=== PATIENT | female | born 1995 | race Caucasian/White ===

== ENCOUNTER → 2017-03-09 16:59 | Outpatient (CLI) | payer MEDICAID ==
[~2017-03-09 16:59] MED LIST: PRENATAL COMPLE1 TAB PO
[2017-03-22 10:22] VITALS: BMI 27.9
== END | disposition home or self-care (01) ==
LOC: D.LDO 16:59
DX: O36.5930 Maternal care for other known or suspected poor fetal growth, third trimester, not applicable or unspecified (principal); Z3A.36 36 weeks gestation of pregnancy

== ENCOUNTER → 2017-03-14 11:07 | Outpatient (CLI) | payer MEDICAID ==
[2017-03-22 10:22] VITALS: BMI 27.9
== END | disposition home or self-care (01) ==
LOC: D.LDO 11:07
DX: O36.5930 Maternal care for other known or suspected poor fetal growth, third trimester, not applicable or unspecified (principal); Z3A.37 37 weeks gestation of pregnancy

== ENCOUNTER → 2017-03-17 13:47 | Outpatient (CLI) | payer MEDICAID ==
[2017-03-22 10:22] VITALS: BMI 27.9
== END | disposition home or self-care (01) ==
LOC: D.LDO 13:47
DX: O36.5930 Maternal care for other known or suspected poor fetal growth, third trimester, not applicable or unspecified (principal); Z3A.37 37 weeks gestation of pregnancy

== ENCOUNTER → 2017-03-21 10:29 | Outpatient (CLI) | payer MEDICAID ==
[2017-03-22 10:22] VITALS: BMI 27.9
== END | disposition home or self-care (01) ==
LOC: D.LDO 10:29
DX: O36.5930 Maternal care for other known or suspected poor fetal growth, third trimester, not applicable or unspecified (principal); Z3A.38 38 weeks gestation of pregnancy

== ENCOUNTER 2017-03-21 13:03 | Inpatient (IN) | payer MEDICAID ==
[~2017-03-21] VITALS: Ht 172.7 cm; Wt 83.5 kg
[2017-03-22 05:02] VITALS: BP 120/86; BMI 28.0
[2017-03-22] MEDS ORDERED: PRENATAL COMPLE1 TAB PO (05:08)
[2017-03-22 06:31] LABS: HEMATOCRIT 33.9 % (36.0-48.0); HEMOGLOBIN 10.9 g/dL (12-16); MCH 30.4 pg (26.0-34.0); MCHC 32.2 g/dL (31.0-37.0); MCV 94.7 fL (80.0-100.0); MEAN PLATELET VOLUME 12.1 fL (7.4-10.4); RBC 3.58 10x6/uL (4.00-5.40); RDW 16.1 % (11.5-14.5); WBC 12.9 10x3/uL (4.8-10.8)
[2017-03-22 10:22] VITALS: Ht 172.7 cm; Wt 83.5 kg
[2017-03-22 11:11] LABS: APPEARANCE CLEAR (CLEAR); COLOR YELLOW (YELLOW); GLUCOSE NEGATIVE (NEGATIVE); KETONE NEGATIVE (NEGATIVE); NITRITE NEGATIVE (NEGATIVE); PROTEIN TRACE mg/dL (NEGATIVE); UROBILINOGEN NORMAL (NORMAL)
[2017-03-22 11:12] LABS: BILIRUBIN NEGATIVE (NEGATIVE)
--- NOTE | 2017-03-23 05:10 | NUR ---
PATIENT TO ROOM 1275 FOR CARE.
--- NOTE | 2017-03-23 05:37 | NUR ---
PATIENT SHOWERED, GETTING DRESSED AT THIS TIME, DENIES NEEDS. WILL CONTINUE TO MONITOR
--- NOTE | 2017-03-23 06:07 | NUR ---
PATIENT LYING IN BED, RESPIRATIONS EVEN AND NON LABORED. DENIES PAIN OR NEEDS AT THIS TIME. PT STATES THAT SHE FEELS SO MUCH BETTER AFTER TAKING HER SHOWER. ENCOURAGED TO CALL WITH ANY NEEDS.
--- NOTE | 2017-03-23 06:36 | NUR ---
PATIENT WALKING OFF UNIT IN STABLE CONDITION WITH SIGNIFICANT OTHER AT THIS TIME
--- NOTE | 2017-03-23 06:59 | NUR ---
REPORT GIVEN TO AM SHIFT TO ASSUME PATIENT CARE.
[2017-03-23 07:15] VITALS: BP 114/77
--- NOTE | 2017-03-23 07:15 | NUR ---
PT AMBULATORY BACK TO ROOM. VSS. AAO X 3. HRRR WITHOUT AUDIBLE MURMUR. BBS CLEAR. BS X 4. ABDOMEN SOFT/NON-DISTENDED. FUNDUS FIRM AT U/2. RUBRA LOCHIA MOD AMT. PT DENIES HEAVY BLEEDING. NEG HOMANS' SIGN. PPP. NO EDEMA NOTED TO BLE. STATES PAIN OF "1" ON 0-10 PAIN SCALE. STATES BACK PAIN AND PERINEAL PAIN. DENIES NEED FOR PAIN MED. SR UP X2. CALL LIGHT IN REACH.
[2017-03-23 07:27] LABS: RAPID PLASMA REAGIN Non Reactive (Non Reactive)
--- NOTE | 2017-03-23 08:20 | NUR ---
PT SITTING UP IN BED. FEEDING INFANT. FUNDUS FIRM AT U/2. RUBRA LOCHIA SMALL AMT. PT DENIES PASSING CLOTS.
--- NOTE | 2017-03-23 09:48 | NUR ---
PT AMBULATORY IN HALLS. TOLERATES ACTIVITY WELL.
--- NOTE | 2017-03-23 09:54 | NUR ---
PT AMBULATORY BACK TO ROOM. STATES PASSED A SMALL DIME SIZED CLOT EARLIER. DENIES HEAVY BLEEDING.
--- NOTE | 2017-03-23 10:50 | NUR ---
PT SITTING UP IN BED FEEDING . PT OFFERED ENCOURAGEMENT AND QUESTIONS ANSWERED.
--- NOTE | 2017-03-23 11:47 | NUR ---
PT AMBULATORY WITH FAMILY IN HALLS.
--- NOTE | 2017-03-23 13:30 | NUR ---
PT AMBULATORY BACK TO ROOM. KARLEE ACTIVITY WELL. PT TO SHOWER AT THIS TIME. DENIES NEEDS OR C/O.
--- NOTE | 2017-03-23 14:35 | NUR ---
PT SITTING UP IN BED. STATES DECIDED TO WAIT ON SHOWER FOR NOW. VISITS WITH FAMILY. DENIES NEEDS OR C/O.
--- NOTE | 2017-03-23 15:37 | NUR ---
PT AMBULATORY WITH SO IN HALLS. DENIES C/O OR NEEDS.
--- NOTE | 2017-03-23 15:50 | NUR ---
PT AMBULATORY BACK TO ROOM.
--- NOTE | 2017-03-23 16:15 | NUR ---
PT AMBULATORY IN ROOM. PT TO BED. VS NOTED. FUNDUS FIRM AT U/2. RUBRA LOCHIA SMALL AMT. PT DENIES HEAVY BLEEDING OR PASSING CLOTS. PT DENIES PAIN OR NEEDS.
[2017-03-23 16:16] VITALS: BP 138/84
--- NOTE | 2017-03-23 17:34 | NUR ---
PT AMBULATORY WITH FAMILY OFF UNIT. DENIES C/O OR NEEDS.
--- NOTE | 2017-03-23 18:20 | NUR ---
PT AMBULATORY IN HALLS. REQUESTS NICOTINE PATCH.
--- NOTE | 2017-03-23 18:30 | NUR ---
PT RETURNS TO ROOM. STATES AMBULATED TO [place] WITH SO. DENIES PAIN OR NEEDS. AWAITING NICOTINE PATCH TO BE VERIFIED BY PHARMACY.
--- NOTE | 2017-03-23 19:00 | NUR ---
PATIENT REPORT RECEIVED FROM FARNAZ ALANIZ TO ASSUME PATIENT CARE.
[2017-03-23 19:10] VITALS: BP 131/80
--- NOTE | 2017-03-23 19:10 | NUR ---
IN TO ASSESS PATIENT AT THIS TIME. PATIENT RESTING QUIETLY IN BED WITH INFANT AND SIGNIFICANT OTHER. POSITIVE BONDING NOTED. BED LOCKED, IN LOW POSITION, CALL MENDOZA AND TRAY TABLE IN REACH.
--- NOTE | 2017-03-23 19:16 | NUR ---
MOTRIN 600MG PO AT THIS TIME PER MD ORDERS AND PT REQUEST. 14MG NICOTINE TRANSDERMAL PATCH PLACED TO RIGHT UPPER ARM PER MD ORDER AND PT REQUEST. EDUCATION PROVIDED. PT DENIES OTHER NEEDS AT THIS TIME. SIGNIFICANT OTHER REMAINS AT BEDSIDE FOR ASSISTANCE.
--- NOTE | 2017-03-23 20:40 | NUR ---
PATIENT SLEEPING, RESPIRATIONS EVEN AND NON LABORED. SIGNIFICANT OTHER REMAINS AT BEDSIDE FOR ASSISTANCE.
--- NOTE | 2017-03-23 21:50 | NUR ---
PATIENT SLEEPING, RESPIRATIONS EVEN AND NON LABORED. SIGNIFICANT OTHER REMAINS AT BEDSIDE.
--- NOTE | 2017-03-23 23:45 | NUR ---
PATIENT SITTING UP IN BED USING CELL PHONE AT THIS TIME, DENIES PAIN OR NEEDS AT THIS TIME.
--- NOTE | 2017-03-24 01:30 | NUR ---
PATIENT SLEEPING, RESPIRATIONS EVEN AND NON LABORED. SIGNIFICANT OTHER REMAINS AT BEDSIDE. BED LOCKED IN LOW POSITION, CALL MENDOZA AND TRAY TABLE IN REACH.
--- NOTE | 2017-03-24 03:35 | NUR ---
PATIENT SLEEPING IN BED ON HER RIGHT SIDE. RESPIRATIONS EVEN AND NON LABORED. SIGNIFICANT OTHER REMAINS AT BEDSIDE FOR ASSISTANCE. BED LOCKED, IN LOW POSITION. TRAY TABLE AND CALL MENDOZA IN REACH.
[2017-03-24 04:10] VITALS: BP 117/64
--- NOTE | 2017-03-24 05:30 | NUR ---
PATIENT RESTING QUIETLY WITH NO NEEDS IDENTIFIED.
--- NOTE | 2017-03-24 07:00 | NUR ---
PATIENT REPORT GIVEN TO AM SHIFT TO ASSUME PATIENT CARE.
[2017-03-24 08:00] VITALS: BP 120/72
--- NOTE | 2017-03-24 08:00 | NUR ---
PT WAS RECEIVED FROM LABOR AND DELIVERY. PT OFFERS NO COMPLAINTS. GEN- AWAKE AND ALERT- LUNGS- CLEAR. HEART- RRR. ABD- SOFT WITH TENDERNESS. FUNDUS FIRM. SMALL LOCIA RUBRA. EXT MINIMAL EDEMA LE. BED IS LOW, SIDE RAILS UP X 2 AND CALL LIGHT IN REACH.
--- NOTE | 2017-03-24 09:30 | NUR ---
PT IS SITTING ON COUCH WITH BABY. SHE OFFERS NO COMPLAINTS. SHE STATES THAT SHE IS NOT HAVING ANY PAIN.
--- NOTE | 2017-03-24 11:04 | NUR ---
PT IS AMBULATING IN ROOM. SHE OFFERS NO COMPLAINTS.
--- NOTE | 2017-03-24 12:55 | NUR ---
WENT TO CHECK ON PT. SHE IS NOT IN ROOM. FOB STATES SHE WENT TO [place] TO GET SOME LUNCH. BABY IS IN ROOM.
--- NOTE | 2017-03-24 14:00 | NUR ---
PT IS AMBULATING IN HER ROOM. SHE OFFERS NO COMPLAINTS.
--- NOTE | 2017-03-24 15:01 | NUR ---
PT SITTING ON COUCH WITH FOB AND BABY. SHE OFFERS NO COMPLAINTS. PT KEEPS COMING AND GOING FROM ROOM.
--- NOTE | 2017-03-24 15:08 | NUR ---
care assumed from Sylvia Hinson rn, report attempted at bedside but pt not in room. Report received at nurses station.
--- NOTE | 2017-03-24 15:45 | NUR ---
Rounds made, pt not in room at this time.
[2017-03-24 19:30] VITALS: BP 125/80
--- NOTE | 2017-03-24 19:30 | NUR ---
INFANT IN ROOM IN OPEN CRIB. PT. SITTING ON SIDE OF BED. ASSESSMENT DONE. DISCUSSED WITH PT. REGARDING ROOMING IN STATUS. PT. STATES UNDERSTANDING AND STATES DAYSHIFT HAD ALSO EXPLAINED. SKIN WARM AND DRY. BREATH SOUNDS CLEAR AND BOWEL SOUNDS AUDIBLE. LOCHIA RUBRA SCANT. PT. DENIES ANY PAIN.
--- NOTE | 2017-03-24 19:35 | NUR ---
DISCUSSED WITH PT. DISCHARGE INSTRUCTION AND ALL REVIEWED WITH PT. PT STATED VERBAL UNDERSTANDING TO INCLUDE CALLING OFFICE ON MONDAY TO SCHEDULE 4 WEEK APPT.
--- NOTE | 2017-03-27 07:56 | OP ---
PATIENT NAME: LINDA BARRIENTOS MEDICAL RECORD: [id number] :95 LOCATION:[id number] ADMISSION DATE:03/22/17 SURGEON: AMANDA CALVO MD DATE OF OPERATION: 03/22/2017 PREDELIVERY DIAGNOSIS: Intrauterine growth restriction at term. POSTDELIVERY DIAGNOSES: 1. Mother delivered at term. 2. Small for gestational age. PROCEDURE: Induction of labor with vaginal delivery. ATTENDING: Amanda Calvo MD ANESTHETIC: Continuous lumbar Epidural. FINDINGS: Viable female , vertex presentation, Apgars 9 and 9, weight 1890 grams. Placenta is manually extracted. A first-degree laceration without repair. ESTIMATED BLOOD LOSS: 300 cc. DISPOSITION: Mother and doing well and recovered in the room. TRANSINT:[id number] Voice Confirmation ID: [id number] DOCUMENT ID: [id number] AMANDA CALVO MD at 0756 CC: [id number] DICTATION DATE: 03/23/17 014 CARBON ACCOUNTANT: 03/23/17 0330 DIS IN 03/24/17 [facility] [address] [place] [address]
--- NOTE | 2017-05-10 06:56 | DS ---
PATIENT:LINDA BARRIENTOS :89 MEDICAL RECORD: [id number] DISCHARGE SUMMARY ADMISSION DATE: 03/22/17 DISCHARGE DATE: 03/24/17 DATE OF ADMISSION: 03/22/2017 DATE OF DISCHARGE: 03/24/2017 ADMISSION DIAGNOSIS: at term. DISCHARGE DIAGNOSIS: Mother delivered at term. PROCEDURE: Vaginal delivery. HISTORY OF PRESENT ILLNESS: See the H&P in the chart. SUMMARY OF HOSPITALIZATION: The patient was admitted, delivered without incident. At the time of discharge, the patient is doing well with [id number] lochia. The patient has adequate pain control and has been given standard precautions. The patient will be followed up at [facility] in 4 weeks. TRANSINT:[id number] Voice Confirmation ID: [id number] DOCUMENT ID: [id number] AMANDA CALVO MD at 0656 CC: [id number] DICTATION DATE: 05/05/17 0843 CONSTRUCTION MILLWRIGHT: 05/05/17 1204 DIS IN 03/24/17 [facility] [id number] [place] [address]
== END 2017-03-24 19:40 | disposition home or self-care (01) | DRG 775 ==
LOC: UNDOADMIN 13:03 → D.SDCHOLD 13:03 → D.LD 13:18
PROVIDERS: ADMIT Obstetrics & Gynecology
PROC: 10E0XZZ Delivery of Products of Conception, External Approach (ICD-10-PCS; principal; 2017-03-22)
DX: O36.5930 Maternal care for other known or suspected poor fetal growth, third trimester, not applicable or unspecified (principal); Z3A.38 38 weeks gestation of pregnancy; Z37.0 Single live birth; O70.0 First degree perineal laceration during delivery; O99.824 Streptococcus B carrier state complicating childbirth